=== PATIENT | female | born 1975 | race Caucasian/White ===

== ENCOUNTER 2016-08-18 17:18 | Inpatient (IN) | payer MEDICAID ==
[~2016-08-18] VITALS: Ht 165.1 cm; Wt 128.9 kg
[~2016-08-18 17:18] MED LIST: PROPOFOL 50ML PER ML IV ONE
[2016-08-18] MEDS ORDERED: SODIUM CHLORIDE 0.9% 2,000 ML ONE (17:51)
[2016-08-18] MEDS ORDERED: DILAUDID 1 MG/ML AMP ONE ×2 (17:51→19:28)
[2016-08-18] MEDS ORDERED: SODIUM CHLORIDE 0.9% 100 ML IV ONE (17:51)
[2016-08-18] MEDS ORDERED: ONDANSETRON 4 MG VIAL ONE ×3 (17:51→20:57)
[2016-08-18] MEDS ORDERED: FAMOTIDINE 20 MG INJ ONE (17:52)
[2016-08-18] MEDS ORDERED: PANTOPRAZOLE 40 MG VIAL IV ONE (17:52)
[2016-08-18] MEDS ORDERED: DICYCLOMINE 20MG/2ML VIAL IM ONE (18:51)
[2016-08-18] MEDS ORDERED: SODIUM CHLORIDE 0.9% 1,000 ML ONE ×2 (19:28→20:46)
[2016-08-18] MEDS ORDERED: PIPERACIL/TAZO 4.5GM/100ML 100 ML IV ONE (20:55)
[2016-08-18] MEDS ORDERED: DEXTROSE 50% SYRINGE 50 ML IV PRN (21:40)
[2016-08-18] MEDS: FAMOTIDINE 20 MG INJ IV SCH (21:40)
[2016-08-18] MEDS ORDERED: SODIUM CHLORIDE 0.9% 1,000 ML IV SCH (21:40)
[2016-08-18] MEDS ORDERED: GLUCAGON 1 MG VIAL IM PRN (21:40)
[2016-08-18] MEDS ORDERED: SALINE FLUSH 10 ML FLUSH PRN (21:45)
[2016-08-18] MEDS ORDERED: SOD BICARB 8.4% SYR 50 ML IV ONE (22:25)
[2016-08-18] MEDS ORDERED: NEB-ALBUTEROL 2.5 MG/3 ML INH PRN (22:25)
[2016-08-18 22:30] VITALS: BP_SYST 116; TEMP 98.7
[2016-08-18] MEDS: PROMETHAZINE 25 MG/ML VIAL IV PRN (22:32)
[2016-08-18 22:46] VITALS: BP_SYST 136; RESP 21
[2016-08-18 22:51] VITALS: Ht 165.1 cm; Wt 128.9 kg
[2016-08-18 23:00] VITALS: BP_SYST 113; RESP 30
[2016-08-18] MEDS: DILAUDID 1 MG/ML AMP IV PRN (23:39)
[2016-08-19] VITALS (37 sets, daily range): BP systolic 48–153; RESP 17–42; TEMP 97.9–98.9
[2016-08-19] MEDS: METRONIDAZOLE 500MG/100ML 100 ML IV SCH ×4 (00:43→23:20)
[2016-08-19] MEDS ORDERED: SODIUM CHLORIDE 0.9% 1,000 ML IV ONE (01:20)
[2016-08-19] MEDS ORDERED: DEXTROSE 5% IV ONE (01:55)
[2016-08-19] MEDS ORDERED: SODIUM BICARB 8.4% IV ONE (01:55)
[2016-08-19] MEDS ORDERED: SOD BICARB 8.4% SYR 50 ML IV ONE (01:55)
[2016-08-19] MEDS ORDERED: LACT RINGERS 1,000 ML IV ONE (02:05)
[2016-08-19] MEDS ORDERED: SOD BICARB 8.4% SYR 50 ML ONE (02:13)
[2016-08-19] MEDS: LACT RINGERS 1,000 ML IV SCH ×2 (02:21→22:06)
[2016-08-19] MEDS: DILAUDID 1 MG/ML AMP IV PRN ×7 (02:35→22:08)
[2016-08-19] MEDS: SODIUM BICARB 8.4% IV SCH ×2 (03:04→11:05)
[2016-08-19] MEDS: DEXTROSE 5% IV SCH ×2 (03:04→11:05)
[2016-08-19] MEDS: SODIUM CHLORIDE 0.9% FLUSH BAG 500 ML IV SCH (06:00)
[2016-08-19] MEDS: SALINE FLUSH 10 ML FLUSH SCH ×2 (08:00→19:34)
[2016-08-19] MEDS: FAMOTIDINE 20 MG INJ IV SCH ×2 (08:37→19:57)
[2016-08-19] MEDS: MAGNESIUM SULF 1 GM/100 ML 100 ML IV SCH ×2 (08:37→09:48)
[2016-08-19] MEDS: LEVOFLOXACIN 750 MG/150 ML 150 ML IV SCH (08:38)
[2016-08-19] MEDS ORDERED: LACT RINGERS 1,000 ML IV SCH (09:25)
[2016-08-19] MEDS ORDERED: SODIUM PHOSPHATE 30 MM in SODIUM CHLORIDE 0.9% 250 ML IV ONE (09:25)
[2016-08-19] MEDS ORDERED: MISSING DOSE XX ONE (09:50)
[2016-08-19] MEDS: VANCOMYCIN SUSP 250 MG/5 ML UDC PO SCH ×3 (13:57→19:57)
[2016-08-19] MEDS ORDERED: DEXTROSE 50% SYRINGE 50 ML IV PRN (14:30)
[2016-08-19] MEDS ORDERED: INSULIN DRIP 1 UNIT/ML 100 ML IV SCH (14:30)
[2016-08-19] MEDS ORDERED: ALBUMIN HUMAN 25GM (25%) 100 ML IV ONE (16:00)
[2016-08-19] MEDS ORDERED: SUMATRIPTAN 6 MG/0.5 ML SUBQ ONE (16:05)
[2016-08-19] MEDS: PROMETHAZINE 25 MG/ML VIAL IV PRN (19:00)
[2016-08-19] MEDS: ONDANSETRON 4 MG VIAL IV PUSH PRN (22:33)
[2016-08-19] MEDS ORDERED: VANCOMYCIN SUSP 250 MG/5 ML UDC PO ONE (23:45)
[2016-08-20] VITALS (30 sets, daily range): BP systolic 124–186; RESP 14–33; TEMP 97.8–98.2
[2016-08-20] MEDS: DILAUDID 1 MG/ML AMP IV PRN ×8 (00:37→22:30)
[2016-08-20] MEDS: ONDANSETRON 4 MG VIAL IV PUSH PRN ×3 (03:45→22:35)
[2016-08-20] MEDS: SODIUM CHLORIDE 0.9% FLUSH BAG 500 ML IV SCH (05:21)
[2016-08-20] MEDS: LACT RINGERS 1,000 ML IV SCH (05:22)
[2016-08-20] MEDS ORDERED: VANCOMYCIN SUSP 250 MG/5 ML UDC PO SCH (06:00)
[2016-08-20] MEDS: SALINE FLUSH 10 ML FLUSH SCH ×2 (07:31→21:18)
[2016-08-20] MEDS: METRONIDAZOLE 500MG/100ML 100 ML IV SCH ×2 (08:30→17:11)
[2016-08-20] MEDS: FAMOTIDINE 20 MG INJ IV SCH ×2 (08:30→21:17)
[2016-08-20] MEDS: LEVOFLOXACIN 750 MG/150 ML 150 ML IV SCH (08:31)
[2016-08-20] MEDS ORDERED: Furosemide 20 MG/2 ML VIAL IV ONE (08:35)
[2016-08-20] MEDS ORDERED: DIPHENHYDRAMINE 50 MG/ML VIAL IV ONE (08:35)
[2016-08-20] MEDS: VANCOMYCIN SUSP 250 MG/5 ML UDC PO SCH ×2 (10:12→15:34)
[2016-08-20] MEDS ORDERED: POTASSIUM PHOSPHATE 30 MMOL in SODIUM CHLORIDE 0.9% 250 ML IV ONE (12:55)
[2016-08-20] MEDS ORDERED: LEVEMIR INSULIN SUBQ ONE (13:55)
[2016-08-20] MEDS ORDERED: GLUCAGON 1 MG VIAL IM PRN (13:55)
[2016-08-20] MEDS ORDERED: LACT RINGERS 1,000 ML IV SCH (13:55)
[2016-08-20] MEDS ORDERED: DEXTROSE 50% SYRINGE 50 ML IV PRN (13:55)
[2016-08-20] MEDS: MAGNESIUM SULF 1 GM/100 ML 100 ML IV SCH ×2 (14:21→15:24)
[2016-08-20] MEDS: PROMETHAZINE 25 MG/ML VIAL IV PRN ×2 (15:24→20:01)
[2016-08-20] MEDS: KCL CR 10 MEQ CAP PO SCH ×2 (17:11→21:17)
[2016-08-20] MEDS: LACTOBACILLUS ACIDOPH CAP PO SCH ×2 (17:11→21:17)
[2016-08-20] MEDS: SACCHA BOULARDII 250MG CAP PO SCH ×2 (17:11→21:17)
[2016-08-20] MEDS: DIPHENHYDRAMINE 25 MG CAP PO PRN (21:17)
[2016-08-21] VITALS (15 sets, daily range): BP systolic 129–171; RESP 14–24; TEMP 97.5–98.9
[2016-08-21] MEDS: METRONIDAZOLE 500MG/100ML 100 ML IV SCH ×2 (01:00→08:00)
[2016-08-21] MEDS: PROMETHAZINE 25 MG/ML VIAL IV PRN ×3 (02:27→23:31)
[2016-08-21] MEDS: DILAUDID 1 MG/ML AMP IV PRN ×6 (02:27→23:31)
[2016-08-21] MEDS: SODIUM CHLORIDE 0.9% FLUSH BAG 500 ML IV SCH ×2 (05:41→19:55)
[2016-08-21] MEDS: VANCOMYCIN SUSP 250 MG/5 ML UDC PO SCH ×6 (05:42→23:32)
[2016-08-21] MEDS ORDERED: POTASSIUM PHOSPHATE 30 MMOL in SODIUM CHLORIDE 0.9% 250 ML IV ONE (07:35)
[2016-08-21] MEDS: FAMOTIDINE 20 MG INJ IV SCH (08:00)
[2016-08-21] MEDS: SALINE FLUSH 10 ML FLUSH SCH ×2 (08:18→21:51)
[2016-08-21] MEDS: SACCHA BOULARDII 250MG CAP PO SCH ×3 (08:21→21:50)
[2016-08-21] MEDS: LACTOBACILLUS ACIDOPH CAP PO SCH ×3 (08:21→21:50)
[2016-08-21] MEDS: KCL CR 10 MEQ CAP PO SCH ×3 (08:22→21:50)
[2016-08-21] MEDS: METRONIDAZOLE 500 MG TAB PO SCH ×3 (08:28→21:50)
[2016-08-21] MEDS: LEVOFLOXACIN 750 MG TAB PO SCH (08:28)
[2016-08-21] MEDS: LEVEMIR INSULIN SUBQ SCH (08:33)
[2016-08-21] MEDS: ONDANSETRON 4 MG VIAL IV PUSH PRN (13:18)
[2016-08-21] MEDS ORDERED: MISSING DOSE XX ONE (18:25)
[2016-08-21] MEDS: LACT RINGERS 1,000 ML IV SCH (21:50)
[2016-08-22] MEDS: ONDANSETRON 4 MG VIAL IV PUSH PRN ×3 (03:03→18:27)
[2016-08-22] MEDS: DILAUDID 1 MG/ML AMP IV PRN ×6 (03:03→22:41)
[2016-08-22 03:04] VITALS: BP_SYST 122; RESP 18; TEMP 98.1
[2016-08-22] MEDS: VANCOMYCIN SUSP 250 MG/5 ML UDC PO SCH ×3 (06:00→18:00)
[2016-08-22 07:00] VITALS: BP_SYST 123; RESP 18; TEMP 98.1
[2016-08-22] MEDS: SALINE FLUSH 10 ML FLUSH SCH ×2 (09:23→21:03)
[2016-08-22] MEDS: METRONIDAZOLE 500 MG TAB PO SCH ×3 (09:24→21:02)
[2016-08-22] MEDS: LACTOBACILLUS ACIDOPH CAP PO SCH ×3 (09:24→21:02)
[2016-08-22] MEDS: SACCHA BOULARDII 250MG CAP PO SCH ×3 (09:24→21:03)
[2016-08-22] MEDS: KCL CR 10 MEQ CAP PO SCH ×3 (09:25→21:02)
[2016-08-22] MEDS: LEVOFLOXACIN 750 MG TAB PO SCH (09:26)
[2016-08-22] MEDS: LEVEMIR INSULIN SUBQ SCH (09:27)
[2016-08-22 11:00] VITALS: BP_SYST 120; RESP 18; TEMP 98.3
[2016-08-22] MEDS: PROMETHAZINE 25 MG/ML VIAL IV PRN (13:17)
[2016-08-22 15:00] VITALS: BP_SYST 133; RESP 18; TEMP 98.9
[2016-08-22] MEDS: LACT RINGERS 1,000 ML IV SCH (17:57)
[2016-08-22 19:14] VITALS: BP_SYST 126; RESP 20; TEMP 99.1
[2016-08-22 23:00] VITALS: BP_SYST 134; RESP 18; TEMP 98.7
[2016-08-23] MEDS: VANCOMYCIN SUSP 250 MG/5 ML UDC PO SCH ×3 (00:47→12:38)
[2016-08-23] MEDS: ONDANSETRON 4 MG VIAL IV PUSH PRN ×2 (00:48→06:52)
[2016-08-23] MEDS: DIPHENHYDRAMINE 25 MG CAP PO PRN ×2 (00:49→06:52)
[2016-08-23] MEDS: DILAUDID 1 MG/ML AMP IV PRN ×4 (00:49→12:40)
[2016-08-23] MEDS: SODIUM CHLORIDE 0.9% FLUSH BAG 500 ML IV SCH (05:09)
[2016-08-23 07:20] VITALS: BP_SYST 126; RESP 20; TEMP 98.2
[2016-08-23] MEDS: SALINE FLUSH 10 ML FLUSH SCH (09:06)
[2016-08-23] MEDS: METRONIDAZOLE 500 MG TAB PO SCH ×2 (09:07→16:05)
[2016-08-23] MEDS: KCL CR 10 MEQ CAP PO SCH ×2 (09:07→16:05)
[2016-08-23] MEDS: LACTOBACILLUS ACIDOPH CAP PO SCH ×2 (09:07→16:05)
[2016-08-23] MEDS: SACCHA BOULARDII 250MG CAP PO SCH ×2 (09:07→16:06)
[2016-08-23] MEDS: LEVEMIR INSULIN SUBQ SCH (09:08)
[2016-08-23 11:02] VITALS: BP_SYST 143; RESP 18; TEMP 98.6
[2016-08-23] MEDS ORDERED: FLUCONAZOLE 150 MG TAB PO ONE (15:45)
[2016-08-23 15:46] VITALS: BP_SYST 143; RESP 18; TEMP 98.6
[2016-08-23 15:51] VITALS: BP_SYST 143; RESP 18; TEMP 97.9
[2016-08-23 15:56] VITALS: BP_SYST 143; RESP 18; TEMP 97.9
== END 2016-08-23 16:42 | disposition home or self-care (01) | DRG 871 ==
LOC: ENRESERVTM → ENRESERV → ENRESERVDT → ER 17:18 → EMR 21:37 → ENPENDDIS 21:37 → ICU 22:23 → 4NT 08-21 11:11
PROVIDERS: ADMIT Internal Medicine; ATTEND Internal Medicine
PROC: 0DBG8ZX Excision of Left Large Intestine, Via Natural or Artificial Opening Endoscopic, Diagnostic (ICD-10-PCS; 2016-08-19)
PROC: 0DBF8ZX Excision of Right Large Intestine, Via Natural or Artificial Opening Endoscopic, Diagnostic (ICD-10-PCS; 2016-08-19)
PROC: 02H633Z Insertion of Infusion Device into Right Atrium, Percutaneous Approach (ICD-10-PCS; principal; 2016-08-19 12:00)
DX: A41.9 Sepsis, unspecified organism (principal); R65.21 Severe sepsis with septic shock; J96.01 Acute respiratory failure with hypoxia; K59.31 Toxic megacolon; N17.9 Acute kidney failure, unspecified; A04.7 Enterocolitis due to Clostridium difficile; E87.2 Acidosis; Z68.42 Body mass index [BMI] 45.0-49.9, adult; E87.1 Hypo-osmolality and hyponatremia; E66.01 Morbid (severe) obesity due to excess calories; G47.33 Obstructive sleep apnea (adult) (pediatric); F41.9 Anxiety disorder, unspecified; M79.7 Fibromyalgia; K21.9 Gastro-esophageal reflux disease without esophagitis; E86.0 Dehydration; E11.65 Type 2 diabetes mellitus with hyperglycemia; J45.909 Unspecified asthma, uncomplicated; E83.52 Hypercalcemia; E83.42 Hypomagnesemia; E83.39 Other disorders of phosphorus metabolism; Z87.891 Personal history of nicotine dependence
CPT/HCPCS: 36415; 36558; 36600; 71010; 74022; 74177; 80048; 80053; 80069; 82553; 82803; 82947; 83036; 83605; 83630; 83690; 83735; 84100; 84484; 84703; 85025; 85610; 85730; 86850; 86900; 86901; 87040; 87045; 87046; 87177; 87425; 87493; 87798; 88305; 93005; 94799; 96361; 96365; 96372; 96374; 96375; 96376; 99223; 99232; 99233; 99238; 99291